=== PATIENT | female | born 1990 | race African-American/Black ===

== ENCOUNTER 2016-11-02 08:32 | Emergency (ER) | payer OTHER ==
[~2016-11-02] VITALS: Ht 162.6 cm; Wt 74.5 kg
[2016-11-02] MEDS ORDERED: [UNRECOGNIZED DRUG - OTHER] (08:48)
[2016-11-02] MEDS ORDERED: ZYRT10CA PO (08:48)
[2016-11-02 09:38] LABS: BASO % 0.2 % (0.0-1.0); EOS # 0.2 K/mm3 (0.0-0.50); EOS % 1.6 % (0.0-3.0); LARGE UNSTAINED CELL # 0.1 K/mm3 (0.0-0.4); LARGE UNSTAINED CELL % 0.9 % (0.0-4.0); LYMPH # 1.3 K/mm3 (1.5-6.5); LYMPH % 11.9 % (24.0-44.0); MEAN CORPUSCULAR HEMOGLOBIN 27.1 pg (27.0-33.0); MEAN CORPUSCULAR HGB CONC 32.5 g/dl (32.0-36.5); MEAN CORPUSCULAR VOLUME 83.3 fl (80.0-96.0); MONO # 0.5 K/mm3 (0.0-0.8); MONO % 4.5 % (0.0-5.0); NEUTROPHILS # 8.4 K/mm3 (1.8-7.7); NEUTROPHILS % 80.9 % (36.0-66.0); PLATELET COUNT, AUTOMATED 191 k/mm3 (150-450); RED CELL DISTRIBUTION WIDTH 14.2 % (11.5-14.5); WHITE BLOOD COUNT 10.3 K/mm3 (4.0-10.0)
--- NOTE | 2016-11-02 09:49 | REP ---
Chest one-view HISTORY: Chest pain Comparison: None The lungs are clear. The heart is normal in size. The pulmonary vasculature is normal in appearance. Impression: No acute disease. Signed by Stan Reagan MD 11/02/2016 09:41 A
[2016-11-02 09:54] LABS: ALBUMIN 2.8 GM/DL (3.2-5.2); ALKALINE PHOSPHATASE 54 U/L (45-117); ALT/SGPT 27 U/L (12-78); ANION GAP 8 MEQ/L (8-16); AST/SGOT 14 U/L (15-37); BILIRUBIN,DIRECT < 0.1 MG/DL (0.0-0.2); BILIRUBIN,TOTAL 0.3 MG/DL (0.2-1.0); BLOOD UREA NITROGEN 7 MG/DL (7-18); CALCIUM LEVEL 9.1 MG/DL (8.5-10.1); CARBON DIOXIDE LEVEL 25 MEQ/L (21-32); CHLORIDE LEVEL 108 MEQ/L (98-107); CREATININE FOR GFR 0.63 MG/DL (0.55-1.02); GLOMERULAR FILTRATION RATE > 60.0 (>60); GLUCOSE, FASTING 72 MG/DL (70-105); POTASSIUM SERUM 3.6 MEQ/L (3.5-5.1); SODIUM LEVEL 141 MEQ/L (136-145); TOTAL PROTEIN 6.8 GM/DL (6.4-8.2)
[2016-11-02 09:56] LABS: ERYTHROCYTE SEDIMENTATION RATE 24 mm/hr (0-20)
--- NOTE | 2016-11-02 11:18 | REP ---
BILATERAL LOWER EXTREMITY DOPPLER VENOUS ULTRASOUND: 11/02/2016. Clinical history: Dyspnea. . Rule out DVT. Comparison: None. Technique: The deep venous system of the bilateral lower extremities is evaluated with dunn scale imaging, compression ultrasound, color imaging and duplex Doppler interrogation. Examination from the groin through the popliteal fossa into the proximal calf. Findings: There is full compressibility from the common femoral vein in the inguinal region through the popliteal vein on both sides. Color imaging confirms patency throughout the course of the deep venous system. There is respiratory variation and augmented flow at all levels. Impression: 1. No Doppler venous ultrasound evidence of DVT in the bilateral lower extremities. Signed by Janes Church MD 11/02/2016 06:57 P
[2016-11-02 13:23] VITALS: BP 112/76
[2016-11-02] MEDS ORDERED: SODIUM CHLORIDE 0.9% 1000 ML IV ONE (13:45)
[2016-11-02] MEDS ORDERED: diphenhydrAMINE INJ 50MG/ML VIAL (J1200) IV STA (14:23)
[2016-11-02] MEDS ORDERED: ISOVUE-370 76% 100ML VIAL (Q9967) As Ordered ONE (15:03)
--- NOTE | 2016-11-02 15:49 | REP ---
CT ANGIOGRAM OF THE CHEST: 11/02/2016. Clinical history: Dyspnea, chest pain. Prior history of cardiomyopathy after a previous . Cardiac workup in the ER negative. This case was discussed with the ED physician at length who had consulted with obstetrics regarding this. We all concur that CT pulmonary angiogram is appropriate and necessary. ED physician discussed all of this with the patient prior to the scan. Technique: The patient received a bolus of 75 ml Isovue 370. She was premedicated because of prior history of an iodine allergy. Axial images with our pulmonary CT angiogram protocol and thick slab MIP coronal and sagittal reformats are reviewed. Findings: The lung soriano are adequately inflated. There is minor dependent atelectatic change mid and lower lung zones bilaterally without pleural effusion, pleural thickening, pleural based mass or acute infiltrate. No pulmonary nodule. There is no pneumothorax or pneumomediastinum. Heart size mildly prominent. Left atrium appears enlarged. The left ventricle is prominent. There is no pericardial thickening or effusion. The aorta is without aneurysm or dissection. The main, right and left pulmonary arteries and the mediastinum are without filling defect. The lobar arteries, segmental and visible subsegmental arteries are all without filling defect or vessel cutoff. No pathologic sized mediastinal or hilar adenopathy is noted. No axillary or supraclavicular mass visible. Thyroid lobes seen in part and are grossly symmetric. Tracheal airway intact. No hiatal hernia. The upper abdomen shows liver and spleen in part grossly intact. Stomach filled with retained food. The bone windows show the sternum, manubrium, medial clavicles, small portions of the humeral heads, glenohumeral joints, scapula, ribs and the thoracic spine all without focal lesion or fracture. Impression: 1. There is no CT evidence of pulmonary thromboembolism, vessel cutoff or other abnormality of the pulmonary vasculature. 2. The aorta without aneurysm or dissection. There is no pathologic sized mediastinal or hilar adenopathy. 3. Mild enlargement of the cardiac silhouette with left atrium and left ventricle prominent. May be related to second trimester state. No pericardial effusion, pleural effusion or other acute finding. Signed by Janes Church MD 11/02/2016 07:08 P
--- NOTE | 2016-11-02 20:23 | ECHO ---
DATE OF PROCEDURE: 11/02/2016 AGE: 26 GENDER: Female HEIGHT: 64 inches WEIGHT: 165 pounds BODY SURFACE AREA: 1.8 m2. PATIENT LOCATION: Emergency room. REFERRING PHYSICIAN: Marce Sandoval MD INDICATION: Dyspnea (prior history of cardiomyopathy?). 2-D MEASUREMENTS: RV: 3.8 cm LV: 4.5 cm Septum: 0.8 cm Posterior wall: 0.8 cm Aortic root: 2.8 cm LA: 3.3 cm LVEF: 65% DOPPLER MEASUREMENTS: AV: 1.4 m/s LVOT: 1.0 m/s LVOT diameter: 2.2 cm MV-E: 53 cm, A: 50, EA ratio: 1 Early mitral deceleration time: 165 ms E prime: 9, A prime: 8, E/E prime ratio: 6. PV: 0.9 m/s Pulmonary artery acceleration time: 148 ms RVSP: 23 mmHg IVC: 1.1 cm COMMENTS: Normal sinus rhythm without intraventricular conduction disturbance. Normal cardiac chamber sizes and wall thickness. On real-time imaging from the parasternal and apical projections, wall motion was symmetrical and normal. Normal-appearing mitral valvular apparatus and leaflet excursion with no posterior systolic buckling. Three equal size aortic cusps of normal thickness and cusp separation. Normal aortic root size. No apparent intracardiac mass or pericardial effusion. Color flow Doppler study taken from the parasternal and apical projections showed trace mitral and very mild tricuspid, but no aortic insufficiency. Guided continuous wave Doppler of her aortic valve showed a normal peak systolic velocity against left ventricle (LV) outflow tract obstruction. Pulsed and continuous wave Doppler of her LV inflow tract taken from the apical four-chamber projection showed normal diastolic filling velocities against mitral stenosis. The filling pattern and estimated mean left atrial pressure using pulsed and tissue Doppler of her mitral annulus were all within normal limits. Pulsed and continuous wave Doppler of her pulmonary trunk showed a normal peak systolic velocity against right ventricle (RV) outflow tract obstruction. Her pulmonary artery acceleration time was normal against an elevated pulmonary vascular resistance. Guided continuous wave Doppler of her tricuspid valve allowed our estimation of her right ventricular systolic pressure (within normal limits). Normal inferior vena cava (IVC) size and collapse against an elevated central venous pressure. CONCLUSIONS: Normal appearing echocardiogram/Doppler study. No sign of cardiomyopathy. Normal left ventricular size, wall thickness and wall motion. Normal left atrial size and Doppler assessment of LV diastolic function and estimated mean left atrial pressure.
--- NOTE | 2016-11-03 13:54 | ECGEPIP ---
Stationary ECG Study [facility] - ED Test Date: 2016-11-02 Pat Name: JELANI PAYNE Department: Room: - Gender: F Service Girl: sb : 1990 Requested By: Marce Hankins Order Number: [id number] Reading MD: Marce Hankins Measurements Intervals [place] Rate: 77 P: 26 UT: 146 QRS: 32 QRSD: 77 T: -2 QT: 377 QTc: 428 Interpretive Statements SINUS RHYTHM BASELINE ARTIFACT LIMITS INTERRPETATION NO PRIOR FOR COMPARISON Electronically Signed On 11-03-2016 13:54:03 EDT by Marce Hankins
[2017-02-08] MEDS ORDERED: PRENTAB9 PO (17:24)
[2017-02-08] MEDS ORDERED: VALT500T PO (17:24)
[2017-02-08] MEDS ORDERED: MUCI3TAB PO (17:24)
[2017-02-10] MEDS ORDERED: COLA100C5 PO (07:59)
[2017-02-10] MEDS ORDERED: ACET50TA PO (08:00)
[2017-02-10] MEDS ORDERED: ADVI200C5 PO (08:01)
[2017-02-10] MEDS ORDERED: NUPE1OIN2 TOP (08:02)
== END 2016-11-02 16:16 | disposition home or self-care (01) ==
LOC: M ED 09:41
DX: O26.893 Other specified pregnancy related conditions, third trimester (principal); R07.9 Chest pain, unspecified; R06.00 Dyspnea, unspecified; Z3A.25 25 weeks gestation of pregnancy
CPT/HCPCS: 36415; 71010; 71275; 80048; 80076; 82550; 82553; 83880; 84443; 85025; 85652; 93005; 93041; 93306; 93970; 94760; 96374; 99285; J1200; Q9967

== ENCOUNTER → 2017-01-20 | Outpatient (CLI) | payer OTHER ==
[~2017-01-20] MED LIST: ACET50TA PO; ADVI200C5 PO; COLA100C5 PO; MUCI3TAB PO; NUPE1OIN2 TOP; PRENTAB9 PO; VALT500T PO; ZYRT10CA PO; [UNRECOGNIZED DRUG - OTHER]
--- NOTE | 2017-01-20 16:59 | ECHO ---
DATE OF PROCEDURE: 01/20/2017 REFERRING PROVIDER: Ethel Yu CNM INDICATION: Cardiomyopathy, unspecified. HEIGHT: 160 cm WEIGHT: 78.5 kg 2D MEASUREMENTS: Left atrium: 3.5 cm Aortic root: 2.6 cm Left ventricle diastole: 4.3 cm Ventricular septum: 1.06 cm Posterior wall: 1.11 cm LVOT: 1.9 cm Inferior vena cava: 1.4 cm DOPPLER MEASUREMENTS: Aortic valve velocity: 125 cm/s LVOT velocity: 92.5 cm/s LVOT VTI: 18.4 cm Mitral E velocity: 68.1 cm/s Mitral A velocity: 60.7 cm/s Mitral deceleration time: 229 ms Very mild tricuspid regurgitation. Estimated right ventricle systolic pressure: 21 mmHg assuming a pressure of 5 mmHg MITRAL ANNULAR TISSUE DOPPLER: E prime septal: 6.9 cm/s E prime lateral: 17.2 cm/s DESCRIPTION OF PROCEDURE: Rhythm was sinus. Image quality was fair. No pericardial effusion. This was a 2D, M-mode, color flow Doppler and pulse wave Doppler examination and included mitral annular tissue Doppler. CONCLUSIONS: 1. Normal echocardiogram Doppler. 2. Normal left ventricle internal dimensions and wall thickness. Normal regional left ventricular (LV) wall motion and wall thickening. Normal LV systolic function. Left ventricular ejection fraction (LVEF) 65% by visual estimate. Normal LV diastolic function. Edited 01/20/2017
== END ==
LOC: M CARPUL 14:55
PROVIDERS: ATTEND Midwife
DX: I42.9 Cardiomyopathy, unspecified (principal)